=== PATIENT | male | born 1930 | race Caucasian/White ===

== ENCOUNTER 2016-08-24 09:46 | Inpatient (IN) | payer MEDICARE ==
[2016-08-24] MEDS ORDERED: IPRATROPIUM-ALBUTEROL 3 ML NEB INHALATION STA (09:54)
[2016-08-24 09:56] VITALS: TEMP 97.3
[2016-08-24 10:20] LABS: CH 31.9; CHCM 31.9; HCT 43.4 % (39.0-53.0); HDW 2.76; HGB 13.6 gm/dL (13.0-17.5); MCH 31.4 pg (25.0-35.0); MCHC 31.3 g/dL (31.0-37.0); MCV 100.5 fL (80.0-100.0); Mean Platelet Volume 7.3; RBC 4.32 m/uL (4.30-5.90); RDW 13.4 % (11.5-15.5); WBC (Perox) 6.15
--- NOTE | 2016-08-24 10:40 | ED ---
SOB HPI - General Chief Complaint: Shortness of Breath Stated Complaint: Chest Pain Time Seen by Provider: 08/24/16 09:53 Source: patient, family, EMS Mode of arrival: EMS Limitations: no limitations - History of Present Illness Initial Comments: This patient is an 86-year-old man who presents to be evaluated for shortness of breath. The patient has been having ongoing COPD and was recently treated for pneumonia. The patient was to follow up with his tufting machine operator single needle today but they called EMS because he was feeling much more short of breath this morning. The patient is denying fever or chills, chest pain, change in urination, leg pain or swelling. He does have a nonproductive cough. MD Complaint: shortness of breath -: week(s) Severity: moderate Consistency: constant Improves With: nothing Worsens With: nothing Known History Of: COPD, recurrent pneumonia Associated Symptoms: denies other symptoms Treatments Prior to Arrival: oxygen, bronchodilator - Related Data Home Medications Medication Instructions Recorded Confirmed Doxazosin [Cardura] 4 mg PO HS 04/18/16 08/24/16 Budesonide [Pulmicort] 0.5 mg INHALATION RT-BID 08/24/16 08/24/16 Previous Rx's Medication Instructions Recorded Arformoterol Tartrate [Brovana] 15 mcg INHALATION RT-BID #1 nebu 07/11/16 Famotidine [Pepcid] 20 mg PO HS tab 07/11/16 Ipratropium-Albuterol Nebulize 3 ml INHALATION RT-QID ampul.neb 07/11/16 [Duoneb 0.5 mg-3 mg/3 ml Soln] Allergies Allergy/AdvReac Type Severity Reaction Status Date / Time Sulfa (Sulfonamide Allergy Unknown Verified 08/24/16 10:30 Antibiotics) Penicillins AdvReac Nausea & Verified 08/24/16 10:30 Vomiting & Diarrhea Review of Systems ROS Statement: Those systems with pertinent positive or pertinent negative responses have been documented in the HPI. ROS Other: All systems not noted in ROS Statement are negative. Constitutional: Reports: weakness. Denies: fever, chills Respiratory: Reports: cough, dyspnea, wheezes. 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 His initial lymphoma was diagnosed back in 2004, however it was reconfirmed on his last admission dated 04/23/2016. History of Any Multi-Drug Resistant Organisms: None Reported Past Surgical History: Appendectomy, Orthopedic Surgery, Tonsillectomy Additional Past Surgical History / Comment(s): R thoracentesis's x 2, 2006 bronchoscopy with bx and lavage, L axillary node bx, L elbow pinning, Past Anesthesia/Blood Transfusion Reactions: No Reported Reaction Additional Past Anesthesia/Blood Transfusion Reaction / Comment(s): Pt received blood in past without reaction. Past Psychological History: No Psychological Hx Reported Additional Psychological History / Comment(s): Pt resides with his spouse. He has home oxygen at 2l/NC ATC and a nebulizer. He uses a walker to ambulate. He does not drive. To get to appts he either has family drive him or he takes the bus or taxi or his fishing rod mechanic will take him. Smoking Status: Former smoker Past Alcohol Use History: Occasional Additional Past Alcohol Use History / Comment(s): Pt started smoking in 1943 and quit in 1993. Past Drug Use History: None Reported - Past Family History Father Family Medical History: No Reported History Additional Family Medical History / Comment(s): Pt states his father was healthy and at the age of 74yrs. Mother Family Medical History: No Reported History Additional Family Medical History / Comment(s): Pt states mother was healthy and at the age of 93yrs. General Exam Limitations: no limitations General appearance: alert, in distress (2 cap neck), cachectic Head exam: Present: atraumatic ENT exam: Present: mucous membranes dry Respiratory exam: Present: respiratory distress, wheezes, rhonchi, accessory muscle use. Absent: rales, chest wall tenderness, decreased breath sounds, prolonged expiratory Cardiovascular Exam: Present: regular rate, normal heart sounds. Absent: systolic murmur, diastolic murmur, rubs, gallop GI/Abdominal exam: Present: soft. Absent: tenderness, guarding, rebound Extremities exam: Present: normal capillary refill. Absent: pedal edema, calf tenderness Neurological exam: Present: alert Skin exam: Present: warm, dry, intact, normal color. Absent: rash Course Vital Signs 08/24/16 08/24/16 08/24/16 09:49 10:05 10:12 Temperature 97.3 F L Pulse Rate 95 88 Respiratory 32 H Rate Blood Pressure 170/78 O2 Sat by Pulse 81 L 95 Oximetry 08/24/16 08/24/16 08/24/16 10:16 10:51 11:51 Temperature Pulse Rate 90 90 89 Respiratory 16 Rate Blood Pressure 132/68 124/73 O2 Sat by Pulse 95 93 L Oximetry Medical Decision Making - Medical Decision Making Patient is an 86-year-old man with respiratory distress, brought in by EMS. He is seen here in the department by Dr. Denton, and his further care will be decided based on the results of the CT per Dr. Denton. Case discussed with Dr. Silveira covering admitting physician. - Lab Data Result diagrams: 08/24/16 10:06 08/24/16 10:56 Lab Results 08/24/16 08/24/16 08/24/16 Range/Units 10:06 10:06 10:06 WBC 6.0 (3.8-10.6) k/uL RBC 4.32 (4.30-5.90) m/uL Hgb 13.6 (13.0-17.5) gm/dL Hct 43.4 (39.0-53.0) % MCV 100.5 H (80.0-100.0) fL MCH 31.4 (25.0-35.0) pg MCHC 31.3 (31.0-37.0) g/dL RDW 13.4 (11.5-15.5) % Plt Count 163 (150-450) k/uL Neutrophils % (Manual) 76.0 % Lymphocytes % (Manual) 21.0 % Monocytes % (Manual) 3.0 % Neutrophils # (Manual) 4.6 (1.3-7.7) k/uL Lymphocytes # (Manual) 1.3 (1.0-4.8) k/uL Monocytes # (Manual) 0.2 (0-1.0) k/uL Nucleated RBCs 0 (0-0) /100 WBC Anisocytosis (manual) Present D-Dimer 1.98 H (<0.60) mg/L FEU Sodium (137-145) mmol/L Potassium (3.5-5.1) mmol/L Chloride (98-107) mmol/L Carbon Dioxide (22-30) mmol/L Anion Gap mmol/L BUN (9-20) mg/dL Creatinine (0.66-1.25) mg/dL Est GFR (MDRD) Af Amer (>60 ml/min/1.73 sqM) Est GFR (MDRD) Non-Af (>60 ml/min/1.73 sqM) Glucose (74-99) mg/dL Calcium (8.4-10.2) mg/dL Total Bilirubin (0.2-1.3) mg/dL AST (17-59) U/L ALT (21-72) U/L Alkaline Phosphatase (38-126) U/L Troponin I (0.000-0.034) ng/mL NT-Pro-B Natriuret Pep 532 pg/mL Total Protein (6.3-8.2) g/dL Albumin (3.5-5.0) g/dL 08/24/16 08/24/16 Range/Units 10:56 10:56 WBC (3.8-10.6) k/uL RBC (4.30-5.90) m/uL Hgb (13.0-17.5) gm/dL Hct (39.0-53.0) % MCV (80.0-100.0) fL MCH (25.0-35.0) pg MCHC (31.0-37.0) g/dL RDW (11.5-15.5) % Plt Count (150-450) k/uL Neutrophils % (Manual) % Lymphocytes % (Manual) % Monocytes % (Manual) % Neutrophils # (Manual) (1.3-7.7) k/uL Lymphocytes # (Manual) (1.0-4.8) k/uL Monocytes # (Manual) (0-1.0) k/uL Nucleated RBCs (0-0) /100 WBC Anisocytosis (manual) D-Dimer (<0.60) mg/L FEU Sodium 144 (137-145) mmol/L Potassium 4.8 (3.5-5.1) mmol/L Chloride 103 (98-107) mmol/L Carbon Dioxide 37 H (22-30) mmol/L Anion Gap 4 mmol/L BUN 25 H (9-20) mg/dL Creatinine 0.47 L (0.66-1.25) mg/dL Est GFR (MDRD) Af Amer >60 (>60 ml/min/1.73 sqM) Est GFR (MDRD) Non-Af >60 (>60 ml/min/1.73 sqM) Glucose 104 H (74-99) mg/dL Calcium 8.8 (8.4-10.2) mg/dL Total Bilirubin 0.8 (0.2-1.3) mg/dL AST 19 (17-59) U/L ALT 30 (21-72) U/L Alkaline Phosphatase 71 (38-126) U/L Troponin I <0.012 (0.000-0.034) ng/mL NT-Pro-B Natriuret Pep pg/mL Total Protein 5.3 L (6.3-8.2) g/dL Albumin 2.8 L (3.5-5.0) g/dL - EKG Data EKG shows normal: sinus rhythm (With PVCs rate 92 bpm), axis (Normal), intervals (Normal), ST-T waves (Normal) Interpretation: LVH Disposition Clinical Impression: Pulmonary fibrosis, COPD (chronic obstructive pulmonary disease), Pleural effusion Disposition: ADMITTED IP TO THIS HOSP Condition: Poor Referrals: Julito Denton MD [Primary Care Provider] - 1-2 days
[2016-08-24 10:48] LABS: Add Differential Manual Differential
[2016-08-24 10:50] LABS: Nucleated Red Blood Cells 0 /100 WBC (0-0); Total Cells Counted 100
[2016-08-24] MEDS ORDERED: MORPHINE SULFATE 4 MG/ML SYRINGE IV STA ×2 (11:19→16:50)
--- NOTE | 2016-08-24 11:22 | XR ---
EXAMINATION TYPE: XR chest 1V portable DATE OF EXAM: 08/24/2016 11:16 AM Comparison: 07/08/2016 Clinical History: 86-year-old male with dyspnea Findings: The heart is mildly enlarged. Mild hyperinflation with diffuse interstitial prominence and some Kerle y B lines noted. There is a focal opacity in the right midlung likely fluid in the minor fissure. Sma ll pleural effusions are present with a bibasilar patchy opacity. Impression: 1. COPD with findings suggesting superimposed CHF with interstitial pulmonary edema. 2. Small pleural effusions with adjacent atelectasis and/or consolidation are also relatively similar . 3. Continued right mid lung mass, possible pseudotumor related to fluid trapped along the minor fissu re. Follow-up to ensure clearance.
[2016-08-24 11:27] LABS: ALT 30 U/L (21-72); AST 19 U/L (17-59); Alkaline Phosphatase 71 U/L (38-126); Anion Gap 4 mmol/L; Blood Urea Nitrogen 25 mg/dL (9-20); Calcium 8.8 mg/dL (8.4-10.2); Carbon Dioxide 37 mmol/L (22-30); Chloride 103 mmol/L (98-107); Glucose 104 mg/dL (74-99); Non-African American GFR(MDRD) >60 (>60 ml/min/1.73 sqM); Potassium 4.8 mmol/L (3.5-5.1); Sodium 144 mmol/L (137-145); Total Bilirubin 0.8 mg/dL (0.2-1.3); Total Protein 5.3 g/dL (6.3-8.2)
[2016-08-24] MEDS ORDERED: RX INFO: IV CONTRAST WAS GIVEN 1 EACH MISC MISCELLANE PRN (12:39)
[2016-08-24] MEDS ORDERED: FUROSEMIDE 10 MG/ML 4 ML VIAL IV STA (12:40)
--- NOTE | 2016-08-24 12:57 | P.CNPUL ---
History of Present Illness Consult date: 08/24/16 Reason for consult: dyspnea, chest pain History of present illness: 86-year-old male patient, coming into the emergency department because of worsening shortness of breath, right-sided chest pain, difficulty in breathing, difficulty moving around and failure to thrive. 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 He was treated with R/CVP chemotherapy for a total of 3 cycles followed by Rituxan and he completed his treatment in February 2006. He had excellent clinical response with complete resolution of his lymphoma without any evidence of recurrence still 2015. In April 2016 the patient presented with progressive weakness, weight loss, anorexia over a total of 6 months. CAT scan of the chest showed bulky mediastinal lymphadenopathy, splenomegaly, retroperitoneal lymphadenopathy. He also had cervical lymphadenopathy. He was also diagnosed having a postobstructive pneumonia. He was treated with antibiotics. He had a biopsy of a left neck lymph node that confirmed the diagnosis of non-Hodgkin's lymphoma of the mental cell type which is consistent with his earlier malignancy. As such, the patient was started on Cytoxan infusion and he has taken a total of 3 cycles, every 4 weeks. The patient has been doing poorly during the course of treatment. He has been hospitalized on several occasions for increased shortness of breath and on each occasion he was treated for pneumonia. At this point in time he has lost significant amount of weight. He is having difficulty with mobility. He looks very much cachectic and emaciated. His chest x-ray showed COPD and increased interstitial markings bilaterally which could be potentially interstitial pulmonary edema versus lymphomatous infiltration of the lung. There is evidence of small bilateral pleural effusion. The mediastinal and the paratracheal stripe is quite thickened and there is a opacity in the right mid lung that was seen on previous chest x-ray although it looks diminished in size compared to the previous image. The ascending aorta is heavily calcified on the chest x-ray. The patient was hypoxic at the time of admission and he was at 81% pulse ox and he was placed on a 50% Ventimask. He is slightly tachycardic with a heart rate of 100, sinus rhythm. No change in mental status. No hemoptysis. No sputum production. No fever. Family is at the bedside and there is consideration for palliative care based on his advanced malignancy and various other comorbidities mentioned. 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, retroperitoneal lymphadenopathy, splenomegaly, chronic hypoxic respiratory failure secondary to above, pectus excavatum chest deformity, mental cell lymphoma with a previous lymphomatous effusion of the lung in 2004 treated with chemotherapy and the exact diagnostic and therapeutic circumstances mentioned above, BPH, chronic cardiac murmur, CHF with mild impairment of the LV function with an ejection fraction of 40-45%, vertigo, R ear [place], BPH, hx of L elbow fracture with surgical repair that did not work-still has L elbow pain, chronic back pain, bilateral knee pain, sinus problems, head injury as 1 yr old child, R arm fractured twice, severe protein calorie malnutrition. History of Any Multi-Drug Resistant Organisms: None Reported Past Surgical History: Appendectomy, Orthopedic Surgery, Tonsillectomy Additional Past Surgical History / Comment(s): R thoracentesis's x , 2005 bronchoscopy with bx and lavage, L axillary node bx, L elbow pinning, Past Anesthesia/Blood Transfusion Reactions: No Reported Reaction Additional Past Anesthesia/Blood Transfusion Reaction / Comment(s): Pt received blood in past without reaction. Past Psychological History: No Psychological Hx Reported Additional Psychological History / Comment(s): Pt resides with his spouse. He has home oxygen at 2l/[place] ATC and a nebulizer. He uses a walker to ambulate. He does not drive. To get to app he either has family drive him or he takes the bus or taxi or his solid tire finisher will take him. Smoking Status: Former smoker Past Alcohol Use History: Occasional Additional Past Alcohol Use History / Comment(s): Pt started smoking in 1943 and quit in 1993. Past Drug Use History: None Reported - Past Family History Father Family Medical History: No Reported History Additional Family Medical History / Comment(s): Pt states his father was healthy and at the age of 74yrs. Mother Family Medical History: No Reported History Additional Family Medical History / Comment(s): Pt states mother was healthy and at the age of 93yrs. Medications and Allergies Home Medications Medication Instructions Recorded Confirmed Type Doxazosin [Cardura] 4 mg PO HS 04/18/16 08/24/16 History Budesonide [Pulmicort] 0.5 mg INHALATION RT-BID 08/24/16 08/24/16 History Allergies Allergy/AdvReac Type Severity Reaction Status Date / Time Sulfa (Sulfonamide Allergy Unknown Verified 08/24/16 10:30 Antibiotics) Penicillins AdvReac Nausea & Verified 08/24/16 10:30 Vomiting & Diarrhea Physical Exam Vitals: Vital Signs Temp Pulse Resp BP Pulse Ox 08/24/16 11:51 89 16 124/73 93 L 08/24/16 10:51 90 132/68 95 08/24/16 10:16 90 08/24/16 10:12 95 08/24/16 10:05 88 08/24/16 09:49 97.3 F L 95 32 H 170/78 81 L Intake and Output 08/23/16 08/24/16 08/24/16 22:59 06:59 14:59 Other: Weight 37.648 kg Patient Weight 08/25/16 06:59 Weight 37.648 kg Thin and frail, cachectic, not in acute distress, not using excessive muscle breathing.Head exam was generally normal. There was no scleral icterus or corneal arcus. Mucous membranes were moist. Neck is negative for any cervical or axillary lymphadenopathy. No goiter or neck masses. The jugular veins are slightly distended. Chest is consistent with pectus excavatum chest deformity. He has thoracic kyphosis. Lung sounds are diminished in lung bases. Scattered crackles are here in the midlung kumar bilaterally. Heart sounds are tachycardic, positive S1-S2 and there is no significant murmurs appreciated.Abdominal exam revealed normal bowel sounds. The abdomen was soft, non-tender, and without masses, organomegaly, or appreciable enlargement of the abdominal aorta. Extremities show extensive muscle atrophy, no cyanosis, no clubbing, no edema. Neurologically is awake and alert following commands and answering questions appropriately. Results - Laboratory Findings CBC and BMP: 08/24/16 10:06 08/24/16 10:56 PT/INR, D-dimer D-Dimer 1.98 mg/L FEU (<0.60) H 08/24/16 10:06 Abnormal lab findings: Abnormal Labs 08/24/16 08/24/16 08/24/16 10:06 10:06 10:56 MCV 100.5 H D-Dimer 1.98 H Carbon Dioxide 37 H BUN 25 H Creatinine 0.47 L Glucose 104 H Total Protein 5.3 L Albumin 2.8 L - Diagnostic Findings Chest x-ray: image reviewed Assessment and Plan Plan: Assessment 1 acute hypoxic arrest 30 failure, shortness of breath, chest pain. Chest x- ray showing diffuse interstitial markings bilaterally along with bilateral pleural effusion. 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 Rule out interstitial edema/failure, rule out atypical/a cystic pulmonary infection specially the patient has been treated with Ritoxan and consideration needs to be given for PCP pneumonia, rule out lymphomatous infiltration of the lungs/progression of his underlying lymphoma. 2 mental cell lymphoma with extensive mediastinal/retroperitoneal lymphadenopathy status post 3 cycles of Rytoxan 3 remote history of mental cell lymphoma treated back in 2005. Back then the patient had lymphomatous pleural effusion that was treated with systemic chemotherapy and the patient excellent recovery and remission for a total of 10 years. 4 pectus excavatum chest deformity 5 CHF with mild impairment of the LV function based on echocardiogram from 2015 6 chronic back pain 7 thoracic kyphosis 8 cachexia with severe protein calorie malnourishment Plan The patient would have a CAT scan of the chest with contrast. This will be needed to reevaluate the progression of the lymphoma and address further treatment and prognosis. Obviously persistence of bulky lymphadenopathy within the mediastinum and or evidence of disease progression with make us lean towards comfort care measures. Otherwise, it may be reasonable to give him a course of antibiotics should there be any form of a chest infection and for that reason I would suggest covering this patient with broad-spectrum antibiotics including cefepime, Levaquin and Bactrim. Will be given a dose of Lasix 40 mg IV push and it's reasonable to repeat an echocardiogram to evaluate his LV function. My plan for now is to review the CAT scan as soon as possible prior to committing any treatment and decided the patient may benefit from any further antibiotic treatment or not. As mentioned, I may recommend comfort measures if there is evidence of disease progression or lack of response to systemic chemotherapy. We will reconsult Dr. Boothe for his input on the case.
--- NOTE | 2016-08-24 13:48 | CT ---
EXAMINATION TYPE: CT chest angio for PE DATE OF EXAM: 08/24/2016 1:31 PM COMPARISON: 04/18/2016 HISTORY: Shortness of breath CT DLP: mGycm Automated exposure control for dose reduction was used. CONTRAST: 70 cc Omnipaque 350. FINDINGS: LUNGS: There are bilateral pleural effusions. Areas of bilateral consolidation and diffuse interstiti al pattern suggestive of pulmonary fibrosis, COPD. Underlying venous congestion not excluded. Pleural -based nodularity is seen in the right upper lobe which may be postinflammatory. Pleural calcificatio ns are seen. 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 Massive mass within the mediastinum results in mass effect upon the heart and pulmonary vascularity t he heart is markedly enlarged and there is coronary artery calcified aeration. Due to the phase of imaging is difficult to detect the spleen. Cannot exclude a mass of adenopathy in the mesentery. Cannot exclude a component of fluid or hematoma. OTHER: Degenerative change of the spine noted. Pleural-based calcifications suggest is best is relat ed disease. Severe atherosclerotic changes are noted including the mesenteric vasculature and renal a rteries. IMPRESSION: No diagnostic evidence of pulmonary embolism. Massive subcarinal adenopathy compressing the posterior margin of the heart and some of the pulmonary vasculature. Adenopathy within the upper abdomen also noted. Spleen appears markedly enlarged. Due to the amount o f adenopathy within the abdomen is difficult to identify the spleen. Soft tissue surrounding the sple en is likely related to adenopathy and progressive from the previous exam. If there is concern for sp lenic injury including hematoma than correlate with blood work. Bilateral sizable pleural effusions with underlying COPD and suspected pulmonary fibrosis with is bes t is related disease. Superimposed venous congestion suggested. Correlate clinically.
[2016-08-24 15:17] VITALS: RESP 20
[2016-08-24] MEDS ORDERED: MORPHINE SULFATE (100 MG/2 ML) 100 MG in SODIUM CHLORIDE 0.9% 100 ML IV SCH (17:30)
[2016-08-24 19:03] VITALS: BP 112/69
[2016-08-25 04:03] VITALS: BMI 14.2
--- NOTE | 2016-08-25 08:38 | ECHOF ---
Referral Reason:chf MEASUREMENTS -------- HEIGHT: 162.6 cm WEIGHT: 37.6 kg BP: IVSd: 1.1 cm (0.6 - 1.1) LVIDd: 3.5 cm (3.9 - 5.3) LVPWd: 0.9 cm (0.6 - 1.1) IVSs: 1.7 cm LVIDs: 1.7 cm LVPWs: 1.3 cm Ao Diam: 2.2 cm (2.0 - 3.7) AV Cusp: 1.1 cm (1.5 - 2.6) LA Diam: 2.0 cm (2.7 - 3.8) MV E Ananda: 0.98 m/s MV DecT: 184 ms MV A Ananda: 0.35 m/s MV E/A Ratio: 2.77 AV maxP.32 mmHg AV meanP.58 mmHg AR PHT: 857 ms RAP: 5.00 mmHg RVSP: 16.30 mmHg FINDINGS -------- Undetermined rhythm. This was a technically difficult study with suboptimal views. The left ventricular size is normal. There is mild concentric left ventricular hypertrophy. Overall left ventricular systolic function is normal with, an EF between 55 - 60 %. RV Promident The left atrium is normal in size. The right atrium is normal in size. RA appears enlarged. Aortic valve is trileaflet and is moderately thickened. There is mild aortic regurgitation. There is mild aortic stenosis present. Peak/mean gradient across the Aortic Valve is 17.32mmHg / 8.58mmHg. The mitral valve leaflets are mildly thickened. Mild mitral annular calcification present. Mild mitral regurgitation is present. Mild tricuspid regurgitation present. The right ventricular systolic pressure, as measured by Doppler, is 16.30mmHg. There is no pulmonic regurgitation present. The aortic root size is normal. There is no pericardial effusion. CONCLUSIONS -------- 1. Undetermined rhythm. 2. There is mild aortic stenosis present. 3. Peak/mean gradient across the Aortic Valve is 17.32mmHg / 8.58mmHg. 4. The mitral valve leaflets are mildly thickened. 5. Mild mitral annular calcification present. 6. Mild mitral regurgitation is present. 7. Mild tricuspid regurgitation present. 8. The right ventricular systolic pressure, as measured by Doppler, is 16.30mmHg. 9. There is no pulmonic regurgitation present. 10. The aortic root size is normal. 11. There is no pericardial effusion. 12. This was a technically difficult study with suboptimal views. 13. There is mild concentric left ventricular hypertrophy. 14. Overall left ventricular systolic function is normal with, an EF between 55 - 60 %. 15. RV Promident 16. The left atrium is normal in size. 17. RA appears enlarged. 18. Aortic valve is trileaflet and is moderately thickened. 19. There is mild aortic regurgitation. DIABETES TRAINER: Leigh Ann Parker RDCS
[2016-08-25] MEDS ORDERED: MORPHINE SULFATE 2 MG/ML SYRINGE IVP PRN (11:33)
--- NOTE | 2016-08-25 12:27 | P.PN ---
Subjective Progress note dated 08/17/2016 This is an 86-year-old gentleman who was admitted through the emergency department yesterday. Seen by my partner in consultation. He has a history of mantle cell lymphoma. Currently the patient's a no code. He wanted to go hospice. The computed tomography scan that was done and here yesterday showed significant progression of his lymphoma. Anyway the patient's currently resting comfortably on the fifth floor. Likely discharge to home with hospice either tomorrow or Saturday. I'm not sure that it whether or not he has any additional needs for home care. He is not in any pain. Not having any shortness of breath. Not really feeling like he very much. He has a Monsivais catheter and to relieve this prostatic hypertrophy. Objective - Vital Signs Vital signs: Vital Signs Temp 97.3 F L 08/24/16 09:49 Pulse 104 H 08/24/16 18:30 Resp 20 08/24/16 18:30 BP 112/69 08/24/16 18:30 Pulse Ox 92 L 08/24/16 18:30 Intake & Output 08/24/16 08/25/16 08/25/16 18:59 06:59 18:59 Intake Total 128 Output Total 750 Balance -750 128 Weight 37.648 kg Intake: Intake, IV Titration 8 Amount Morphine Sulfate 100 mg 8 In Sodium Chloride 0.9% 100 ml @ 1 MG/HR 1.02 mls /hr IV .Q24H [facility] Rx#: [id number] Oral 120 Output: Urine 750 Uretheral (Monsivais) 750 Other: Voiding Method Indwelling Catheter Indwelling Catheter - Exam No acute distress, oriented 3. HEENT examination is grossly unremarkable.. The patient is wearing nasal O2. Neck supple. Full range of motion. No adenopathy. Neck veins are flat. Cardiovascular examination reveals regular rhythm rate. He is not tachycardic. He's got significant pectus excavatum. Lungs reveal few scattered mild rhonchi. Breath sounds equal but somewhat diminished. Abdomen is scaphoid. Extremities are intact. - Labs CBC & Chem 7: 08/24/16 10:06 08/24/16 10:56 Assessment and Plan (1) COPD (chronic obstructive pulmonary disease) Status: Acute (2) Pulmonary fibrosis Status: Acute (3) Mediastinal lymphadenopathy Status: Acute (4) Lymphoma Status: Chronic Plan: Plan dated 08/25/2016 The patient's currently is doing reasonably well. We'll plan for discharge either Saturday or Saturday. We'll make sure that we he has a hospice consultation. The patient's currently on some morphine. Getting nasal O2. I review his medications or any labs. CAT scan were reviewed yesterday. I did speak to Dr. Denton about this patient. Time with Patient: Less than 30
[2016-08-25] MEDS ORDERED: IPRATROPIUM-ALBUTEROL 3 ML NEB INHALATION PRN (12:28)
[2016-08-25] MEDS: NYSTATIN 100,000 UNIT/ML SUSP 500,000 UNIT/5 ML CUP PO SCH ×3 (12:39→22:02)
[2016-08-25] MEDS ORDERED: guaiFENesin SYRUP 100MG/5ML 200 MG/10 ML CUP PO PRN (14:22)
[2016-08-25] MEDS: IPRATROPIUM-ALBUTEROL 3 ML NEB INHALATION SCH ×2 (16:36→21:31)
--- NOTE | 2016-08-25 18:58 | CONS ---
DATE OF CONSULTATION: August 25, 2016. REASON FOR CONSULTATION: Lymphoma. CHIEF COMPLAINT: Weakness and short of breath. Mr. Cuellar is a pleasant 86-year-old gentleman very well known to our office. He has been under the care of Dr. Ray. He was initially diagnosed with Mantle cell lymphoma around 2005. At that time he was treated with RCVP regimen and he did well for several years in fact in 2015 when he relapsed with bulky mediastinal lymphadenopathy which was biopsy-proven to be recurrent Mantle cell lymphoma. He was treated with single agent Rituxan. He had 4 doses. Last treatment was completed in May 2016. He was admitted to the hospital at this time because of progressive ( ). The patient is known to have stage IIIB disease. The patient was admitted to the hospital at this time because of progressive dyspnea, fatigue and shortness of breath. He is extremely weak and tired. He had a CT scan done of the chest, which revealed ( ) also he had he recently had a CT scan of the chest, which revealed bulky mediastinal, hilar adenopathy, splenomegaly and retroperitoneal adenopathies. The patient was recently in the hospital and was discharged home and then was readmitted to the same thing and due to progressive fatigue and dyspnea. He is extremely tired to the point that he cannot stand up and go to the bathroom. He had an echocardiogram during this hospital stay which revealed normal ejection fraction. After discussion the patient and his family decided to proceed with comfort care and hospice, and he is currently DNR. As stated, he is extremely weak, tired, and lost a lot of weight. He is short of breath even with slight exertion. He has some night sweats off and on and cough mostly dry. PAST MEDICAL HISTORY: As stated, he has Mantle cell lymphoma, COPD, hypertension and recurrent bronchitis . He had thoracentesis in the past and a bronchoscopy in 2005. He had a biopsy of left axillary node, and left elbow pinning. SOCIAL HISTORY: He lives with his . He smokes for many years. He quit 20 years ago. He is an occasional alcohol user. No illegal substance abuse. FAMILY HISTORY: His father at age 74 and his mother at age 93. No significant oncologic history in his family. REVIEW OF SYSTEMS: As stated above in the history of present illness. Medication allergies were reviewed in his electronic medical record. On physical examination he is alert and oriented x3. He is an elderly gentleman, very frail, he seems like he lost significant amount of muscle tone. His vital signs are temperature 97.3, pulse 104, respirations 20, blood pressure 112/69, pulse ox is 92% on 2 liters nasal cannula. HEENT: Normocephalic, atraumatic. No icterus. NECK: Supple. No jugular venous distention. CHEST: Equal expansion bilaterally. LUNGS: Reveal diffuse wheezes due to prolonged expiration in all kumar. Crackles at both bases and decreased breath sounds at bases. Heart revealed distant heart sounds regular rate and rhythm. ABDOMEN: Soft. The spleen is enlarged. No obvious organomegaly or masses. EXTREMITIES: Revealed no edema. SKIN: No significant bruises or petechia. A few bruises on upper extremities. No petechiae or ecchymosis. LYMPHATICS: No peripherally enlarged cervical, supraclavicular or lymphadenopathies detected. LABORATORY DATA: WBC 6.0, hemoglobin 13.6, hematocrit is 43.4, platelets are 163. Sodium 144, potassium 4.8, chloride 103, CO2 is 37, BUN 25, creatinine 0.47. LFTs are within normal limits. IMPRESSION: Stage IV mantle cell lymphoma in this elderly gentleman with extremely poor performance status. RECOMMENDATION: Certainly Mantle cell lymphoma behaving in an aggressive, but that the patient had this for. RECOMMENDATIONS: Certainly Mantle cell lymphoma behaving in aggressive manner. RECOMMENDATIONS: I had a long discussion with the patient and his family at bedside. Overall prognosis is poor, certainly one of the treatment options recently approved oral ( ) which is reasonably tolerable Idrutimb with significant activity against Mantle cell lymphoma would be an option. It has somewhat low risk of causing atrial fibrillation and increased risk of bleeding tendency. The patient is not on anticoagulation and there is no known history of cardiac arrhythmias or atrial fibrillation. It would be reasonable option to consider. On the other hand, given his advanced age, very poor performance, status comfort measures and hospice care is also appropriate. The patient and his family are not interested in pursuing any treatment and they would like to proceed with hospice, which is a very reasonable option as well. The above was discussed in detail with the patient and his family at bedside and I have answered all their questions to their satisfaction. Thank you very much for asking me to participate in the care of this nice gentleman.
--- NOTE | 2016-08-25 20:55 | PN ---
DATE OF SERVICE: 08/25/2016 This 86-year-old gentleman with a past medical history of multiple medical problems, including history of COPD, hypertension, prostatism, respiratory disorder and pneumonia, being followed up by Dr. Denton in the outpatient setting was admitted with shortness of breath with chest pain. The patient had Mantle cell lymphoma. The patient presented with acute hypoxic cardiac failure and change in mental status. The patient extremely severe malnutrition. Also the patient' is emaciated, BMI is only 14.2. The family and I had a detailed discussion and decided to transfer him to comfort measures and on hospice at this time. PAST MEDICAL HISTORY: Reviewed. REVIEW OF SYSTEMS: CARDIOVASCULAR: No angina or palpitations. RESPIRATORY: As mentioned earlier. GASTROINTESTINAL: As mentioned earlier. : No dysuria. CENTRAL NERVOUS SYSTEM: No numbness or weakness. ALLERGIES: No asthma or hayfever. MUSCULOSKELETAL: as mentioned earlier. Hematology/Oncology: As mentioned earlier. ENDOCRINE: Negative. CONSTITUTIONAL: As mentioned earlier. The current medications are reviewed and include: 1. DuoNeb q.i.d. and p.r.n. 2. Robitussin. 3. Morphine sulfate. 4. Nystatin. Patient is alert and oriented x3. Pulse 104, blood 112/69, respiratory rate 20, temperature normal. Pulse ox is 92% on 2 liters. HEENT: Conjunctivae normal. Oral mucosa moist. NECK: No jugular venous distention. No carotid bruit. No lymph node enlargement. CARDIOVASCULAR: S1, S2 muffled. No S3, no S4. RESPIRATORY: Breath sounds diminished at the bases. A few scattered rhonchi and expiratory wheezing and crackles present. ABDOMEN: Soft, nontender. No mass palpable. Legs: No edema, no swelling. Nervous system: Higher function as mentioned. Moves all four limbs. Mild diffuse weakness. LYMPHATICS: No lymph nodes palpable in the neck, axillae or groin. SKIN: No ulcer, rash or bleeding. LABS: MCV 100.5 and creatinine is 4.7, d-dimer is 1.98. ASSESSMENT: 1. Chronic obstructive pulmonary disease, acute exacerbation, with acute hypoxic respiratory failure, present on admission. 2. Mantle cell lymphoma with diffuse mediastinal adenopathy and significant progression of disease. 3. Pulmonary fibrosis. 4. Severe protein calorie malnutrition with a body mass index 14. 5. ( ) excavatum. 6. History of congestive heart failure with mild impairment with left ventricle function with chronic systolic dysfunction. 7. Back pain and degenerative joint disease. 8. Kyphoscoliosis. 9. Increased MCV. 10. Increased d-dimer. 11. Hypoalbuminemia. 12. NO CODE, NO CPR, NO VENT. RECOMMENDATIONS AND DISCUSSION: In this 86-year-old gentleman who presented with multiple complex medical issues, we will monitor the patient closely. Continue the current medications. Continue symptomatic treatment. I would recommend morphine p.r.n. Continue the bronchodilators. I would also recommend hospice consultation. Prognosis extremely guarded. Discussed with the family at length. Understands and agrees. Further recommendations to follow.
[2016-08-26] MEDS: IPRATROPIUM-ALBUTEROL 3 ML NEB INHALATION SCH ×3 (08:11→18:52)
[2016-08-26] MEDS: NYSTATIN 100,000 UNIT/ML SUSP 500,000 UNIT/5 ML CUP PO SCH ×4 (08:42→21:20)
--- NOTE | 2016-08-26 12:00 | P.PN ---
Subjective Progress note dated 08/17/2016 This is an 86-year-old gentleman who was admitted through the emergency department yesterday. Seen by my partner in consultation. He has a history of mantle cell lymphoma. Currently the patient's a no code. He wanted to go hospice. The computed tomography scan that was done and here yesterday showed significant progression of his lymphoma. Anyway the patient's currently resting comfortably on the fifth floor. Likely discharge to home with hospice either tomorrow or Saturday. I'm not sure that it whether or not he has any additional needs for home care. He is not in any pain. Not having any shortness of breath. Not really feeling like he very much. He has a Monsivais catheter and to relieve this prostatic hypertrophy. Progress note dated 08/26/2016 86-year-old gentleman admitted with the diagnosis of failure to thrive. He has a history of mantle cell lymphoma. Unfortunately by CAT scan, his lymphoma has progressed. We are long discussion with the family. They started this wanted to be comfort measures. They're hoping to take him home tomorrow with hospice. We did get hospice involved. Anyway we'll just providing him with some oxygen therapy some basic fluids and some morphine. Seemed to do relatively well. We'll also place a Monsivais catheter for urinary retention. Objective - Vital Signs Vital signs: Vital Signs Temp 97.3 F L 08/24/16 09:49 Pulse 84 08/26/16 11:42 Resp 20 08/26/16 11:42 BP 112/69 08/24/16 18:30 Pulse Ox 95 08/25/16 21:32 Intake & Output 08/25/16 08/26/16 08/26/16 18:59 06:59 18:59 Intake Total 240 Balance 240 Weight 37.648 kg Intake: Oral 240 Other: Voiding Method Indwelling Catheter Indwelling Catheter Indwelling Catheter - Exam No acute distress, oriented 3. HEENT examination is grossly unremarkable.. The patient is wearing nasal O2. Neck supple. Full range of motion. No adenopathy. Neck veins are flat. Cardiovascular examination reveals regular rhythm rate. He is not tachycardic. He's got significant pectus excavatum. Lungs reveal few scattered mild rhonchi. Breath sounds equal but somewhat diminished. Abdomen is scaphoid. Extremities are intact. - Labs CBC & Chem 7: 08/24/16 10:06 08/24/16 10:56 Assessment and Plan (1) COPD (chronic obstructive pulmonary disease) Status: Acute (2) Pulmonary fibrosis Status: Acute (3) Mediastinal lymphadenopathy Status: Acute (4) Lymphoma Status: Chronic Plan: Plan dated 08/25/2016 The patient's currently is doing reasonably well. We'll plan for discharge either Saturday or Saturday. We'll make sure that we he has a hospice consultation. The patient's currently on some morphine. Getting nasal O2. I review his medications or any labs. CAT scan were reviewed yesterday. I did speak to Dr. Denton about this patient. Plan dated 08/26/2016 The plan is to discharge the patient tomorrow to home hospice. I believe he has everything he needs an at home. His says he scatted bedside commode and hospital bed. I offered her the patient should shower chair but she does not want one. They have oxygen at home. Hospice has been consulted. Additional recommendations suggestions are forthcoming. Prognosis is poor. Time with Patient: Less than 30
[2016-08-27] MEDS: NYSTATIN 100,000 UNIT/ML SUSP 500,000 UNIT/5 ML CUP PO SCH (07:59)
--- NOTE | 2016-08-27 08:30 | PN ---
This 86-year-old gentleman was admitted with COPD acute exacerbation, also had mantle cell lymphoma and the patient is on comfort measures. Patient is on morphine with adequate pain relief. No chest pain or palpitation. No fever. On exam, alert and oriented x2. Pulse is 104, blood pressure is 112/69, respirations 20, temperature is normal, pulse ox 92% on 2 L. HEENT: Pupils equal, conjunctive normal. NECK: No jugular venous distension. CARDIOVASCULAR: S1, S2, muffled. RESPIRATORY: Breast sounds diminished at the bases, bilateral scattered rhonchi. Abdomen is soft. NERVOUS SYSTEM: No focal deficits. Patient is emaciated. Labs are not available. ASSESSMENT: 1. Chronic obstructive pulmonary disease acute exacerbation, with acute hypoxic respiratory failure, present on admission. 2. Mantel cell lymphoma with progress noted with diffuse mediastinal lymphadenopathy and significant progression of the disease. 3. Pulmonary fibrosis. 4. History of severe protein calorie malnutrition with a body mass index of 14 with severe emaciation. 5. Pectus excavatum. 6. History of congestive heart failure with chronic systolic dysfunction with mild impairment of left ventricular function. 7. Back pain, degenerative joint disease, kyphoscoliosis with increased MCV. 8. Increased d-dimer. 9. Hypoalbuminemia. 10. NO CODE, NO CARDIOPULMONARY RESUSCITATION, NO VENTILATOR. 11. Comfort measures. RECOMMENDATION: In this 86-year-old gentleman who presented with multiple complex medical issues, will monitor the patient closely. Continue with the current medication and symptomatic treatment. Continuing with the comfort measures, morphine, hospice and ready with discharge planning team. Further recommendations to follow. See orders for further details. Discussed with patient and family.
[2016-08-27] MEDS: IPRATROPIUM-ALBUTEROL 3 ML NEB INHALATION SCH (08:40)
[2016-08-27 08:55] VITALS: PULSE 88
--- NOTE | 2016-08-28 10:02 | DS ---
DATE OF ADMISSION: 08/24/2016 DATE OF DISCHARGE: 08/27/2016 FINAL DIAGNOSES: 1. Chronic obstructive pulmonary disease exacerbation with acute hypoxic respiratory failure, present on admission. 2. Mantle cell lymphoma with progression noted with diffuse mediastinal lymphadenopathy and significant progression of the disease. 3. Pulmonary fibrosis. 4. Severe protein calorie malnutrition with body mass index of 14 with severe emaciation. 5. Pectus excavata. 6. History of congestive heart failure with chronic systolic dysfunction with mild impairment of left ventricle function. 7. Back pain and degenerative joint disease kyphoscoliosis with increased MCV. 8. Increased d-dimer. 9. Hypoalbuminemia. 10. NO CODE, NO CPR, NO VENT. 11. Comfort measures in hospice. DISCHARGE DISPOSITION: The patient will be discharged in stable condition with guarded prognosis. HISTORY OF PRESENT ILLNESS: This 86-year-old gentleman with past medical history of multiple medical problems, being followed by Dr. Denton in the outpatient setting for COPD acute exacerbation as well as progression severe malnutrition. The was discussed with family and the patient was hospice. The patient was transitioned to hospice at this time. On exam, vitals are stable. CARDIOVASCULAR SYSTEM: S1, S2 muffled. Abdomen soft. Central nervous system: No focal deficits. The patient will be discharged in stable condition with guarded prognosis. ADVICE AND MEDICATIONS: 1. Diet is cardiac. 2. Activity limited until follow-up. 3. Follow up with Dr. Ray and Dr. Denton as recommended. 4. Brovana 15 b.i.d. 5. Pulmicort 0.5 b.i.d. 6. Cardura 4 mg q.h.s. 7. Pepcid 20 mg q.h.s. 8. Habitrol q.i.d. and p.r.n. 9. Ativan 0.5 mg t.i.d. p.r.n. 10. Roxanol 10 mg q.4 p.r.n. Once again, the patient is being discharged in stable condition with guarded prognosis. MTDD
== END 2016-08-27 12:44 | disposition hospice, home (50) | DRG 189 ==
LOC: EC 09:46 → 5ONC 13:26
PROVIDERS: ADMIT Internal Medicine; ATTEND Internal Medicine
DX: J96.21 Acute and chronic respiratory failure with hypoxia (principal); E43 Unspecified severe protein-calorie malnutrition; J44.1 Chronic obstructive pulmonary disease with (acute) exacerbation; C83.10 Mantle cell lymphoma, unspecified site; I50.22 Chronic systolic (congestive) heart failure; J84.10 Pulmonary fibrosis, unspecified; Z99.81 Dependence on supplemental oxygen; G89.29 Other chronic pain; I10 Essential (primary) hypertension; I70.0 Atherosclerosis of aorta; M40.204 Unspecified kyphosis, thoracic region; N40.1 Benign prostatic hyperplasia with lower urinary tract symptoms; Q67.6 Pectus excavatum; R62.7 Adult failure to thrive; R01.1 Cardiac murmur, unspecified; M54.9 Dorsalgia, unspecified; M25.522 Pain in left elbow; H91.91 Unspecified hearing loss, right ear; M47.9 Spondylosis, unspecified; Z68.1 Body mass index [BMI] 19.9 or less, adult; Z87.891 Personal history of nicotine dependence; Z85.828 Personal history of other malignant neoplasm of skin; Z79.899 Other long term (current) drug therapy; Z88.0 Allergy status to penicillin; Z88.2 Allergy status to sulfonamides; Z51.5 Encounter for palliative care; Z66 Do not resuscitate
CPT/HCPCS: 36415; 51798; 71010; 71275; 80053; 83880; 84484; 85025; 85379; 93005; 93306; 94640